=== PATIENT | female | born 2005 | race Caucasian/White ===

== ENCOUNTER 2023-02-02 22:54 | Emergency (ER) | payer OTHER, SELFPAY ==
--- NOTE | 2023-02-02 22:55 | ECG_ITS ---
Measurements Intervals [place] Rate: 89 P: 62 OH: 143 QRS: 71 QRSD: 78 T: 43 QT: 371 QTc: 453 Interpretive Statements SINUS RHYTHM NORMAL ECG NO PREVIOUS ECG AVAILABLE FOR COMPARISON Electronically Signed On 02-03-2023 8:20:15 CDT by Ishan Castillo D.O.
== END 2023-02-03 00:41 | disposition left against medical advice (07) ==
LOC: ANHED 02-03 00:14
PROVIDERS: Emergency Provider Student in an Organized Health Care Education/Training Program; PCP Family Medicine
DX: Z53.21 Procedure and treatment not carried out due to patient leaving prior to being seen by health care provider (principal)
CPT/HCPCS: 93005; 99199

== ENCOUNTER 2024-02-28 18:45 | Emergency (ER) | payer OTHER, SELFPAY ==
--- NOTE | 2024-02-28 18:47 | ED.URI ---
HPI - URI/Sore Throat General Chief Complaint: Upper Respiratory Infection Stated Complaint: SINUS CONGESITON/BODY ACHES/COUGH/EARACHE Time Seen by Provider: 02/28/24 18:47 Source: patient Mode of arrival: ambulatory Limitations: no limitations History of Present Illness HPI Narrative: Mandie is a 19-year-old female patient presenting to the clinic today with complaints of sinus congestion, body aches, cough, and ear pain x1.5 weeks. She reports no known fever. Reports that every by a home is sick. Mom was tested for COVID and strep and was negative and was treated for an ear infection when she was seen at a local urgent care. MD elicited complaint: sore throat and nasal congestion Related Data Allergies Allergy/AdvReac Type Severity Reaction Status Date / Time amoxicillin [From Augmentin] Allergy Mild Unknown Verified 03/24/22 15:53 clavulanic acid Allergy Mild Unknown Verified 03/24/22 15:53 [From Augmentin] Review of Systems Review of Systems: Pertinent positives per HPI. Patient denies any fever, chills, rash, visual changes, dizziness, shortness of breath, chest pain, palpitations, nausea, vomiting, diarrhea, constipation, abdominal pain, or any urinary issues. PMFSH Social History Social History Smoking status: Never smoker Second hand tobacco smoke exposure: No Alcohol intake: never Substance use: never Substance use type: does not use Living arrangements: with family Occupation/Education: student Gender identity (if verbalized by the patient): Female Sexual Orientation (if Verbalized by the Patient): Straight or Heterosexual Comments At the time of my signature, I reviewed and agree with the nursing past medical, surgical, social, and family history. There is no relevant family history pertinent to the patient complaint. Exam Narrative: General: Well-developed, well nourished, in no apparent distress Head: Normocephalic, atraumatic Eyes: Pupils equally round and reactive to light bilaterally, EOM intact, sclera and conjunctive clear, no discharge, lids normal Ears: TMs intact and congested, ear canals clear, no drainage, grossly hearing normal. Nose: Nares patent, yellow nasal discharge, moderate inflammation, maxillary sinus tenderness. Mouth: Oral pharynx without lesions or masses, good dentition, MMM. Neck: Supple, trachea midline, no enlargement of anterior or posterior cervical nodes, no thyroid masses or goiter palpable. Cardio: Regular rate and rhythm, s1 and s2 normal, no murmur appreciated. Resp: Clear to auscultation bilaterally, no rhonchi, rales, wheezing or rubs Course Course Emergency Course: Portions of this record may have been created with voice recognition software. Level of Care: Express Care Visit Vital Signs Vital signs: Vital Signs Temperature 37.7 C H 02/28/24 19:08 Pulse Rate 90 02/28/24 19:08 Respiratory Rate 16 02/28/24 19:08 Blood Pressure 104/62 02/28/24 19:08 Pulse Oximetry 100 02/28/24 19:08 Temperature 37.7 C H 02/28/24 19:08 Pulse Rate 90 02/28/24 19:08 Respiratory Rate 16 02/28/24 19:08 Blood Pressure 104/62 02/28/24 19:08 Pulse Oximetry 100 02/28/24 19:08 Vital signs reviewed MDM - URI/Sore Throat MDM Narrative Medical decision making narrative: At the time of visit patient is resting comfortably on the exam table. Patient appears to be nontoxic. Labs: Strep test was negative in the clinic today. We will send for culture. Plan: I suspect patient has rhinosinusitis. Prescription for azithromycin and prednisone was sent to the pharmacy. Supportive measures were discussed with the patient and they voiced understanding discharge instructions and agrees to treatment plan. Return precautions reviewed Differential Diagnosis Differential diagnosis: Likely upper respiratory infection, otitis media, sinusitis, viral infection, bronc
[2024-02-28 19:08] VITALS: BP 104/62; PULSE 90; RESP 16; TEMP 37.7; O2SAT 100
[2024-02-28 19:17] LABS: EDSTREPNEGPOS1 Negative (Negative)
== END 2024-02-28 19:20 | disposition home or self-care (01) ==
PROVIDERS: Emergency Provider Nurse Practitioner Family; PCP Family Medicine
DX: J01.90 Acute sinusitis, unspecified (principal)
CPT/HCPCS: 87081; 87880; 99213; G0463

== ENCOUNTER 2024-04-28 13:20 | Emergency (ER) | payer OTHER, SELFPAY ==
--- NOTE | 2024-04-28 13:22 | ED.URI ---
HPI - URI/Sore Throat General Chief Complaint: Ear Stated Complaint: Ear Pain/Sore Throat/Congestion Time Seen by Provider: 04/28/24 13:22 Source: patient Mode of arrival: ambulatory Limitations: no limitations History of Present Illness HPI Narrative: Ortiz is a 19-year-old female patient presenting to the clinic today with complaints of ear pain, sore throat, and congestion x6 days. She reports no known fever or chills. Denies any chest pain or shortness of breath.. MD elicited complaint: sore throat and nasal congestion (Left ear pain) Related Data Allergies Allergy/AdvReac Type Severity Reaction Status Date / Time amoxicillin [From Augmentin] Allergy Mild Unknown Verified 03/24/22 15:53 clavulanic acid Allergy Mild Unknown Verified 03/24/22 15:53 [From Augmentin] Review of Systems Review of Systems: Pertinent positives per HPI. Patient denies any fever, chills, rash, headache, visual changes, dizziness, cough, shortness of breath, chest pain, palpitations, nausea, vomiting, diarrhea, constipation, abdominal pain, or any urinary issues. PMFSH Social History Social History Smoking status: Never smoker Second hand tobacco smoke exposure: No Alcohol intake: never Substance use: never Substance use type: does not use Living arrangements: with family Occupation/Education: student Gender identity (if verbalized by the patient): Female Sexual Orientation (if Verbalized by the Patient): Straight or Heterosexual Comments At the time of my signature, I reviewed and agree with the nursing past medical, surgical, social, and family history. There is no relevant family history pertinent to the patient complaint. Exam Narrative: General: Well-developed, well nourished, in no apparent distress Head: Normocephalic, atraumatic Eyes: Pupils equally round and reactive to light bilaterally, EOM intact, sclera and conjunctive clear, no discharge, lids normal Ears: Right TMs intact and clear, left TM intact, bulging, red, ear canals clear, no drainage, grossly hearing normal. Nose: Nares patent, clear nasal discharge, no inflammation, no sinus tenderness. Mouth: Oral pharynx red without lesions or masses, good dentition, MMM. Postnasal drip Neck: Supple, trachea midline, no enlargement of anterior or posterior cervical nodes, no thyroid masses or goiter palpable. Cardio: Regular rate and rhythm, s1 and s2 normal, no murmur appreciated. Resp: Clear to auscultation bilaterally, no rhonchi, rales, wheezing or rubs Course Course Emergency Course: Portions of this record may have been created with voice recognition software. Level of Care: Express Care Visit Vital Signs Vital signs: Vital Signs Temperature 36.8 C 04/28/24 13:32 Pulse Rate 95 04/28/24 13:32 Respiratory Rate 16 04/28/24 13:32 Blood Pressure 137/76 04/28/24 13:32 Pulse Oximetry 100 04/28/24 13:32 Temperature 36.8 C 04/28/24 13:32 Pulse Rate 95 04/28/24 13:32 Respiratory Rate 16 04/28/24 13:32 Blood Pressure 137/76 04/28/24 13:32 Pulse Oximetry 100 04/28/24 13:32 Vital signs reviewed MDM - URI/Sore Throat MDM Narrative Medical decision making narrative: At the time of visit patient is resting comfortably on the exam table. Patient appears to be nontoxic. Plan: I suspect patient has left otitis media, pharyngitis, URI. Prescription for azithromycin was sent to the pharmacy. Supportive measures were discussed with the patient and they voiced understanding discharge instructions and agrees to treatment plan. Return precautions reviewed Differential Diagnosis Differential diagnosis: Likely upper respiratory infection, otitis media, sinusitis, viral infection, bronchitis, influenza, pharyngitis and other (COVID) Discharge Plan Discharge Clinical Impression: Acute left otitis media Upper respiratory infection Qualifiers: URI type: unspecified URI Qualified Code(s): J06.9 - Acute upper respiratory infection, unspecified Pharyngitis Qualifiers: Pharyngitis/tonsillitis etiology: unspecified etiology Qualified Code(s): J02.9 - Acute pharyngitis, unspecified Patient Disposition: Home, Self-Care Condition: Stable Instructions: Antibiotic Form, Pharyngitis (ED), Ear Infection (ED), Cold Symptoms (ED) Additional Instructions: Take prescription medications only as prescribed-azithromycin Increase fluids and stay well hydrated Tylenol/motrin for pain/fever Flonase and OTC antihistamines as directed Vicks vapor rub to open sinuses Sinus rinses for congestion Cepacol spray, cough drops, throat lozenges, warm tea with honey/lemon, gargle salt water to soothe throat BRAT diet for diarrhea Clear liquids x 24 hours then advance as tolerated for nausea/vomiting Go to the ED if you develop a worsening in your condition- high fever not controlled by Tylenol or Motrin, dehydration, weakness, lethargy, shortness of breath, or chest pain. Follow up with your PCP in 3-5 days if symptoms persist. Prescriptions: New azithromycin 250 mg tablet See Rx Instructions .ROUTE .COMPLEX Qty: 6 0RF Rx Instructions: For 250 mg dose pack: take 500 mg today (day 1), then 250 mg for 4 days (days 2-5) Follow-up/Referrals: UNKNOWN,DOCTOR [Non-Staff] - Time of Disposition: 13:43 Quality NIHSS Nursing Documentation ED NIHSS nursing documentation: reviewed/agree
[2024-04-28 13:32] VITALS: BP 137/76; PULSE 95; RESP 16; TEMP 36.8; O2SAT 100
== END 2024-04-28 13:49 | disposition home or self-care (01) ==
PROVIDERS: Emergency Provider Nurse Practitioner Family
DX: H66.92 Otitis media, unspecified, left ear (principal); J06.9 Acute upper respiratory infection, unspecified; J02.9 Acute pharyngitis, unspecified
CPT/HCPCS: 99213; G0463

== ENCOUNTER 2024-05-17 15:18 | Outpatient (CLI) | payer OTHER, SELFPAY ==
[2024-05-19 16:33] LABS: NIL 0.01 IU/mL; Quantiferon TB Plus, 1T NEGATIVE (NEGATIVE); TB1-NIL 0.01 IU/mL; TB2-NIL 0.03 IU/mL
== END 2024-05-17 15:19 | disposition home or self-care (01) ==
LOC: ANHLAB 15:20
PROVIDERS: PCP Family Medicine; Visit Provider Physician Assistant Medical
DX: Z11.1 Encounter for screening for respiratory tuberculosis (principal)
CPT/HCPCS: 36415; 86480

== ENCOUNTER 2024-12-27 13:14 | Emergency (ER) | payer OTHER, SELFPAY ==
--- NOTE | ~2024-12-27 | XR_ITS ---
XR hand RT min 3V 12/27/2024 13:33 INDICATION: Right third finger pain after trauma PROCEDURE: 4 views right hand COMPARISON: No prior studies for comparison. FINDINGS: Fracture, dislocation or subluxation is not identified. The soft tissues appear within norm al limits. No foreign bodies are identified. IMPRESSION: 1: NO ACUTE BONE OR JOINT ABNORMALITY IDENTIFIED. Reviewed, dictated and finalized at location B.
--- NOTE | 2024-12-27 13:15 | ED.UPPEXIN ---
HPI - Extremity Injury (Upper) General Chief Complaint: Extremity Injury, Upper Stated Complaint: INJURED FINGER Time Seen by Provider: 12/27/24 13:15 Source: patient Mode of arrival: ambulatory Limitations: no limitations History of Present Illness HPI narrative: Patient is a 19-year-old female who presents with pain to right middle finger. Patient states about a month ago she punched a punching machine. At that time the back part had been removed and she punched directly onto a metal on accident. Since then she has tenderness on direct palpation and a bump to dorsal part of proximal phalanx. Patient still able to bend finger normally, no swelling, redness numbness, tingling. Related Data Home Medications ?Medication ?Instructions ?Recorded ?Confirmed ?Last Taken ?Type No Home Medications 05/10/24 05/10/24 Unknown History Allergies Allergy/AdvReac Type Severity Reaction Status Date / Time amoxicillin (From Augmentin) Allergy Mild Unknown Verified 05/10/24 09:04 clavulanic acid (From Allergy Mild Unknown Verified 05/10/24 09:04 Augmentin) Review of Systems Review of Systems: All systems reviewed & are unremarkable except as noted in HPI and below Constitutional: Constitutional: Denies body ache(s), Denies chills, Denies fatigue, Denies fever(s), Denies headache(s), Denies malaise and Denies weakness Eyes: Eyes: Denies blurry vision, Denies irritation and Denies loss of vision ENT: Denies otalgia, Denies headache(s), Denies nasal discharge, Denies sinus pain and Denies sore throat Cardiovascular: Cardiovascular: Denies chest pain, Denies irregular heart rhythm and Denies dyspnea Respiratory: Respiratory: Denies dyspnea Gastrointestinal: Gastrointestinal: Denies abdominal pain, Denies melena, Denies hematochezia, Denies diarrhea, Denies nausea and Denies vomiting Musculoskeletal: Musculoskeletal: Denies back pain, Denies myalgias and Reports arthralgias Integumentary/Breasts: Skin/Breast: Denies pruritus and Denies rash Neurologic: Denies headache(s), Denies loss of vision and Denies weakness Psychiatric: Psychiatric: Reports no additional psychiatric complaints Endocrine: Endocrine: Denies fatigue PMFSH Social History Social History Smoking status: Never smoker Second hand tobacco smoke exposure: No Alcohol intake: never Substance use: never Substance use type: does not use Living arrangements: with family Occupation/Education: student Gender identity (if verbalized by the patient): Female Sexual Orientation (if Verbalized by the Patient): Straight or Heterosexual Comments At time of signature, agree with nursing past medical, surgical, social and family history. There is no relevant family history pertinent to the presenting complaint. Exam Const: General: cooperative, healthy appearing, comfortable, no acute distress and well nourished Nutritional Appearance: well nourished Orientation/consciousness: patient oriented x3 Limitations: no limitations HENMT: Head: normal to inspection, normocephalic and atraumatic Ears: hearing grossly normal bilaterally and external ears normal Face/Nose/Sinus: Normal external nose present, normal facial exam and face symmetric Face and sinus: normal facial exam and face symmetric Mouth: Yes lip normal Eyes: General: appearance normal, both eyes and all related structures Alignment and Position: alignment normal and position normal Periorbital: periorbital findings normal Eyelids: eyelids normal Pupils: Equal, round and reactive pupils present EOM: EOMs intact bilaterally Neck: Neck: normal visual inspection, full ROM and supple Chest: Chest palpation & inspection: normal inspection of the chest Resp: Effort & Inspection: normal respiratory effort and able to speak in complete sentences Auscultation: clear to auscultation bilaterally Cardio: Rate: regular rate Rhythm: regular rhythm Heart sounds: S1 normal heart sound present and S2 normal heart sound present GI: Inspection: normal to inspection Skin: General skin exam: normal color and no rashes or lesions noted Neuro: General: patient oriented x3 and moves all extremities Cranial nerves: Yes Equal, round and reactive pupils present Speech: normal speech Gait exam (Neuro): Normal gait present Extrem: General: normal to inspection, full ROM and no edema Right upper extremity: wrist normal to inspection, normal ROM, normal vascular exam and radial pulse present; no tenderness and no swelling and Extremity exam: right hand normal to inspection, normal capillary refill, neuromotor exam normal wrist extension normal, thumb opposition normal, thumb IP flexion normal, thumb ADduction normal and fingers 2-5 ABduction normal, neurosensory exam normal radial nerve sensory function normal, ulnar nerve sensory function normal, median nerve sensory function normal and digital nerve sensory function normal, tendon exam normal of all digits extensor tendon, flexor digitorum profundus and flexor digitorum superficialis, tenderness of the 3rd digit at the proximal phalanx and on the dorsal aspect, vascular exam radial pulse present and normal capillary refill, normal ROM of fingers and no swelling; no unusual warmth Psych: Appearance: grossly normal and well kempt Mental Status: mental status grossly normal Speech and movement: Normal speech and movement present Affect: normal affect Attitude: cooperative Thought process: Normal thought process present Course Course Emergency Course: Patient is aware of diagnosis, understands and agrees to treatment plan. Anticipatory guidance given. Patient agrees to follow-up as directed and is aware of reasons to seek care at the emergency department. Portions of this record may have been created with voice recognition software Level of Care: Express Care Visit Vital Signs Vital signs: Reviewed MDM - Extremity Injury (Upper) MDM Narrative Medical decision making narrative: There is a palpable, moveable nodule the dorsal aspect of the proximal phalanx on the right 3rd digit tender on palpation. The skin is intact, no warmth or erythema. Flexion and extension of the fingers is full and strong. Pt well hydrated appearing, in no respiratory distress, hemodynamically stable. Recommend supportive care. The patient is stable at time of discharge the clinical impression was discussed and the patient was given the opportunity to ask questions, which were addressed as completely as possible given the information available at present. Anticipatory guidance and return to care precautions were discussed and the importance of primary care follow-up was stressed and encouraged. The patient voiced understanding of the plan, indications to return, and the need for follow-up. Exam findings show no acute concerns or changes Patient is appropriate for outpatient treatment and follow-up. Differential Diagnosis Differential diagnosis: Likely finger sprain, dislocation of finger and other (Finger fracture, calcium deposit) Medical Records Attestation: I reviewed the patient's medical records. Imaging Data Radiologist's impression: XR hand RT min 3V 12/27/2024 13:33 INDICATION: Right third finger pain after trauma PROCEDURE: 4 views right hand COMPARISON: No prior studies for comparison. FINDINGS: Fracture, dislocation or subluxation is not identified. The soft tissues appear within normal limits. No foreign bodies are identified. IMPRESSION: 1: NO ACUTE BONE OR JOINT ABNORMALITY IDENTIFIED. Discharge Plan Discharge Clinical Impression: Finger pain, right Patient Disposition: Home Condition: Stable Instructions: Finger Sprain (ED) Additional Instructions: Xray showed no fracture. Minimize activities that aggravate the condition The RICE protocol. Follow the RICE protocol as soon as possible after your injury:. Ice should be immediately applied to keep the swelling down. It can be used for 20 to 30 minutes, three or four times daily. Do not apply ice directly to your skin. Medication: Nonsteroidal anti-inflammatory drugs (NSAIDs) such as ibuprofen and naproxen can help control pain and swelling. Because they improve function by both reducing swelling and controlling pain, they are a better option for mild sprains than narcotic pain medicines. Please schedule a follow-up visit with your personal physician for further evaluation and treatment within 1week OR If your symptoms persist, change or worsen significantly before you can contact your personal physician then please, without delay, go to the emergency department for further evaluation. Patient Language: Macedonian Prescriptions: No Action No Home Medications Follow-up/Referrals: Benny Elena MD [Primary Care Provider] - 3 Days Time of Disposition: 14:19
[2024-12-27 13:22] VITALS: BP 112/61; PULSE 85; RESP 16; TEMP 36.2; O2SAT 100
== END 2024-12-27 14:23 | disposition home or self-care (01) ==
PROVIDERS: Emergency Provider Nurse Practitioner Family; PCP Family Medicine
DX: M79.644 Pain in right finger(s) (principal)
CPT/HCPCS: 73130; 99213; G0463